=== PATIENT | female | born 1975 | race Two or more races ===

== ENCOUNTER → 2017-12-10 | Outpatient (CLI) | payer MEDICAID ==
[~2017-12-10] MED LIST: AMLO10TA2 PO; FOLI1TAB47 PO; HYDR12.58 PO
[2017-12-10 09:45] LABS: BASOPHILS # (AUTO) 0.03 x10^3/uL (0-0.1); BASOPHILS % (AUTO) 0 % (0-1); EOSINOPHILS # (AUTO) 0.07 x10^3/uL (0-0.4); EOSINOPHILS % (AUTO) 1 % (1-7); LYMPHOCYTES % (AUTO) 27 % (22-44); MD NO; MEAN CORPUSCULAR HGB CONC 34.6 g/dL (32.4-35.8); MEAN CORPUSCULAR VOLUME 92.5 fL (80-100); MEAN PLATELET VOLUME 7.8 fL (7.4-10.4); MONOCYTES # (AUTO) 0.35 x10^3/uL (0.2-0.8); MONOCYTES % (AUTO) 5 % (2-9); NEUTROPHILS # (AUTO) 4.74 x10^3/uL (1.8-6.8); NEUTROPHILS % (AUTO) 67 % (42-75); PLATELET COUNT 271 x10^3/uL (130-400); RED BLOOD COUNT 4.76 x10^6/uL (3.82-5.3); RED CELL DISTRIBUTION WIDTH 12.7 % (9.6-15.2)
[2017-12-10 09:47] LABS: MICROSCOPIC AUTO
[2017-12-10 09:48] LABS: CULTURE INDICATED? NO
[2017-12-10 09:57] LABS: ALANINE AMINOTRANSFERASE 27 U/L (12-78); ALBUMIN 3.7 g/dL (3.4-5.0); ANION GAP 6 mmol/L (5-15); CALCIUM 8.7 mg/dL (8.5-10.1); CHLORIDE 102 mmol/L (98-107); CREATININE 0.84 mg/dL (0.55-1.02)
[2017-12-10 10:01] LABS: ALKALINE PHOSPHATASE 60 U/L (45-117); BILIRUBIN,TOTAL 0.5 mg/dL (0.2-1.0); TOTAL PROTEIN 7.8 g/dL (6.4-8.2)
== END | disposition home or self-care (01) ==
LOC: STAR 08:48
PROVIDERS: ATTEND Obstetrics & Gynecology
DX: Z01.818 Encounter for other preprocedural examination (principal)
CPT/HCPCS: 36415; 80053; 81001; 84703; 85025

== ENCOUNTER 2017-12-23 13:18 | Day surgery (SDC) | payer MEDICAID ==
[~2017-12-23] VITALS: Ht 152.4 cm; Wt 86.6 kg
[2017-12-23] MEDS ORDERED: ACETAMINOPHEN 500 MG TABLET PO ONE (14:00)
[2017-12-23] MEDS ORDERED: SCOPOLAMINE PATCH, 1.5MG PATCH.TD72 TD ONE (14:00)
[2017-12-23] MEDS ORDERED: ONDANSETRON ODT 8 MG PO ONE (14:00)
[2017-12-23] MEDS ORDERED: GABAPENTIN 300 MG CAPSULE PO ONE (14:00)
[2017-12-23] MEDS ORDERED: OxyconTIN ER 20 MG TAB.ER PO ONE (14:00)
[2017-12-23] MEDS ORDERED: LIDOCAINE-MPF 1%, 2ML ONE (14:00)
[2017-12-23] MEDS ORDERED: MIDAZOLAM 1 MG/ML, 2ML ONE (14:05)
[2017-12-23] MEDS ORDERED: FENTANYL PF 250 MCG/5ML ONE (14:05)
[2017-12-23] MEDS ORDERED: ROCURONIUM 10MG/ML,5ML ONE (14:06)
[2017-12-23] MEDS ORDERED: PROPOFOL 10 MG/ML, 20ML ONE (14:06)
[2017-12-23] MEDS ORDERED: GLYCOPYRROLATE 0.4 MG/2 ML, 2ML ONE (14:07)
[2017-12-23] MEDS ORDERED: NEOSTIGMINE 1 MG/ML, 10ML ONE (14:07)
[2017-12-23 14:08] LABS: HCG UR SG 1.025 (1.003-1.030)
[2017-12-23] MEDS ORDERED: LACTATED RINGERS 1,000 ML IV SCH (14:09)
[2017-12-23] MEDS ORDERED: DEXAMETHASONE 4 MG/ML, 1ML ONE ×2 (14:09)
[2017-12-23] MEDS ORDERED: LIDOCAINE-MPF 1%, 2ML INFIL ONE (14:30)
[2017-12-23] MEDS ORDERED: BUPIVACAINE/PF-EPI 0.25% 1:200K ONE (14:55)
[2017-12-23] MEDS ORDERED: BACITRACIN ZINC OINT 500U/GM, 0.9 GM ONE (14:56)
[2017-12-23] MEDS ORDERED: MORPHINE SULFATE 4 MG/ML, 1ML IVPush PRN (15:30)
[2017-12-23] MEDS ORDERED: PROMETHAZINE 12.5 MG SUPP PR PRN (15:30)
[2017-12-23] MEDS ORDERED: PROMETHAZINE 25 MG SUPP PR PRN (15:30)
[2017-12-23] MEDS ORDERED: ONDANSETRON ODT 8 MG PO PRN (15:30)
[2017-12-23] MEDS ORDERED: MEPERIDINE/PF 25MG/0.5ML IVPush PRN (15:30)
[2017-12-23] MEDS ORDERED: FENTANYL PF 100 MCG/2ML IV PRN (15:30)
[2017-12-23] MEDS ORDERED: OXYcodone 5 MG/5 ML ORAL.SOL UDC PO PRN (15:30)
[2017-12-23] MEDS ORDERED: LABETALOL 5MG/ML, 20ML IV PRN (15:30)
[2017-12-23] MEDS ORDERED: HYDROmorphone 1 MG/ML, 1ML IV PRN (15:30)
[2017-12-23] MEDS ORDERED: ONDANSETRON 2MG/ML, 2ML IV PRN (15:30)
[2017-12-23] MEDS ORDERED: hydrALAzine 20 MG/ML, 1ML IV PRN (15:30)
[2017-12-23] MEDS ORDERED: PROMETHAZINE 25 MG/ML, 1ML IV PRN (15:30)
== END 2017-12-23 23:56 | disposition home or self-care (01) ==
LOC: OR 13:18 → 4NOR 18:08 → OR 23:56
PROVIDERS: ATTEND Obstetrics & Gynecology Maternal & Fetal Medicine
DX: Z30.2 Encounter for sterilization (principal); I10 Essential (primary) hypertension
CPT/HCPCS: 58301; 58670; 81025; 88302; J1100; J2250; J2704; J2710; J3010; J3490; J7120; Q0162

== ENCOUNTER 2018-08-01 02:28 | Observation (INO) | payer MEDICAID ==
[~2018-08-01] VITALS: Ht 162.6 cm; Wt 87.1 kg
[~2018-08-01 02:28] MED LIST changes: -AMLO10TA2 PO; +AMLO10TA8 PO; -HYDR12.58 PO; +HYDROCHLOROTH12.5 MG PO
--- NOTE | 2018-08-01 02:47 | NUR ---
PT PRESENTED WITH C/O LEFT ARM PAIN "IT FEELS LIKE SOMETHING IS SQUEEZING IT, IT'S TIGHT". MONITORS APPLIED, SIDERAILS UP X2, CALL LIGHT WITHIN REACH. PA AT BEDSIDE FOR PT EVAL
[2018-08-01] MEDS ORDERED: SODIUM CHLORIDE FLUSH 10ML SYR IVF ONE (03:00)
[2018-08-01] MEDS ORDERED: ASPIRIN 81 MG TABLET CHEW PO ONE (03:00)
[2018-08-01] MEDS ORDERED: ASPIRIN 81 MG TABLET CHEW ONE (03:09)
--- NOTE | 2018-08-01 03:11 | NUR ---
PT RESTING ON GURNEY, MEDICATED PER MAR, FAMILY AT BEDSIDE, CALL LIGHT WITHIN REACH, AWAITING LAB, XRAY RESULTS
[2018-08-01 03:13] LABS: BASOPHILS # (AUTO) 0.09 x10^3/uL (0-0.1); BASOPHILS % (AUTO) 1 % (0-1); EOSINOPHILS # (AUTO) 0.16 x10^3/uL (0-0.4); EOSINOPHILS % (AUTO) 2 % (1-7); LYMPHOCYTES % (AUTO) 24 % (22-44); MD NO; MEAN CORPUSCULAR HEMOGLOBIN 31.8 pg (27.0-34.8); MEAN CORPUSCULAR HGB CONC 34.6 g/dL (32.4-35.8); MEAN CORPUSCULAR VOLUME 91.8 fL (80-100); MEAN PLATELET VOLUME 7.7 fL (7.4-10.4); MONOCYTES # (AUTO) 0.61 x10^3/uL (0.2-0.8); MONOCYTES % (AUTO) 6 % (2-9); NEUTROPHILS # (AUTO) 7.45 x10^3/uL (1.8-6.8); NEUTROPHILS % (AUTO) 68 % (42-75); PLATELET COUNT 266 x10^3/uL (130-400); RED BLOOD COUNT 4.85 x10^6/uL (3.82-5.3); RED CELL DISTRIBUTION WIDTH 13.1 % (9.6-15.2)
[2018-08-01 03:23] LABS: ALBUMIN 4.1 g/dL (3.4-5.0); ANION GAP 9 mmol/L (5-15); CHLORIDE 105 mmol/L (98-107); CREATININE 0.71 mg/dL (0.55-1.02)
[2018-08-01 03:27] LABS: TROPONIN I < 0.015 ng/mL (0.000-0.045)
[2018-08-01] MEDS ORDERED: POTASSIUM CHLORIDE 20 MEQ TAB.ER.PRT ONE (03:54)
[2018-08-01] MEDS ORDERED: POTASSIUM CHLORIDE 20 MEQ TAB.ER.PRT PO ONE (04:00)
[2018-08-01] MEDS ORDERED: SODIUM CHLORIDE 0.9% 1,000 ML IV SCH (05:01)
[2018-08-01 05:26] VITALS: BP 119/78
[2018-08-01] MEDS ORDERED: POLYETHYLENE GLYCOL 17 GM PACKET PO PRN (05:30)
[2018-08-01] MEDS ORDERED: POTASSIUM CHLORIDE 40 MEQ in SODIUM CHLORIDE 0.9% 500 ML IV ONE (05:30)
[2018-08-01] MEDS ORDERED: ONDANSETRON ODT 4 MG PO PRN (05:30)
[2018-08-01] MEDS ORDERED: ONDANSETRON 2MG/ML, 2ML IVPush PRN (05:30)
[2018-08-01] MEDS ORDERED: BISACODYL 10 MG SUPP PR PRN (05:30)
[2018-08-01] MEDS ORDERED: ACETAMINOPHEN 325 MG TABLET PO PRN (05:30)
[2018-08-01] MEDS ORDERED: NITROGLYCERIN 0.4 MG BOTTLE (25 TABS) SL PRN (05:30)
[2018-08-01] MEDS ORDERED: DOCUSATE 100 MG CAPSULE PO PRN (05:30)
[2018-08-01] MEDS ORDERED: hydrALAzine 20 MG/ML, 1ML IVPush PRN (05:30)
[2018-08-01] MEDS ORDERED: HYDROcodone/APAP 5/325 TABLET PO PRN (05:30)
[2018-08-01] MEDS ORDERED: morphine SULFATE 10 MG/ML, 1ML IVPush PRN (05:30)
[2018-08-01] MEDS ORDERED: ASPIRIN 325 MG TABLET EC PO SCH (06:00)
[2018-08-01] MEDS: HEPARIN 5,000 UNITS/ML, 1ML SQ SCH ×2 (06:19→13:03)
[2018-08-01 06:29] LABS: FREE T4 (FREE THYROXINE) 1.23 ng/dL (0.76-1.46); TROPONIN I < 0.015 ng/mL (0.000-0.045)
[2018-08-01 06:34] LABS: HEMOGLOBIN A1C 4.9 % (4.2-6.3)
[2018-08-01 06:59] VITALS: BP 100/65
[2018-08-01] MEDS ORDERED: HYDROCHLOROTHIAZIDE 12.5 MG CAPSULE PO SCH (09:00)
[2018-08-01] MEDS ORDERED: AMLODIPINE 10 MG TAB PO SCH (09:00)
[2018-08-01 09:21] LABS: MICROSCOPIC AUTO
[2018-08-01 09:26] LABS: CULTURE INDICATED? NO
[2018-08-01 13:18] LABS: ANION GAP 6 mmol/L (5-15); CALCIUM 8.8 mg/dL (8.5-10.1); CHLORIDE 105 mmol/L (98-107); CREATININE 0.71 mg/dL (0.55-1.02)
[2018-08-01 13:22] LABS: TROPONIN I < 0.015 ng/mL (0.000-0.045)
[2018-08-01] MEDS ORDERED: ACET-1600 PO (13:56)
== END 2018-08-01 15:16 | disposition home or self-care (01) ==
LOC: ED 03:26 → EDIP 03:56 → INTOOBSV 03:56 → 4EST 05:02
PROVIDERS: ADMIT Internal Medicine; ATTEND Internal Medicine
DX: R07.89 Other chest pain (principal); E87.6 Hypokalemia; I10 Essential (primary) hypertension; Z80.1 Family history of malignant neoplasm of trachea, bronchus and lung; Z82.49 Family history of ischemic heart disease and other diseases of the circulatory system; Z98.82 Breast implant status
CPT/HCPCS: 36415; 71045; 78452; 80048; 81001; 82040; 83036; 83735; 84439; 84443; 84484; 85025; 93005; 93017; 96365; 96366; 96372; 99284; A9502; C9898; G0378; J1644; J3480; J7030; J7040

== ENCOUNTER 2020-09-20 10:02 | Emergency (ER) | payer MEDICAID, OTHER ==
[~2020-09-20] VITALS: Ht 152.4 cm; Wt 86.0 kg
[~2020-09-20 10:02] MED LIST changes: +ACET-1600 PO; +AMLO-211 PO; -AMLO10TA8 PO
[2020-09-20] MEDS ORDERED: HYDROmorphone 1 MG/ML, 1ML INJ IV ONE (11:00)
[2020-09-20] MEDS ORDERED: ONDANSETRON 2MG/ML, 2ML IVPush ONE (11:00)
[2020-09-20] MEDS ORDERED: SODIUM CHLORIDE FLUSH 10ML SYR IVF ONE (11:00)
[2020-09-20] MEDS ORDERED: ONDANSETRON 2MG/ML, 2ML ONE (11:09)
[2020-09-20] MEDS ORDERED: HYDROmorphone 1 MG/ML, 1ML INJ ONE (11:09)
[2020-09-20 11:18] LABS: MICROSCOPIC INDICATED
--- NOTE | 2020-09-20 11:18 | NUR ---
PT AMBULATORY TO BR, PROVIDED URINE SPECIMEN. UA COLLECTED/SENT TO LAB. IV PLACED, LABS DRAWN WITH START. PT MEDICATED FOR 10/10 RUQ/R FLANK PAIN. VSS/UPDATED IN COMPUTER. MED REC COMPLETED. CALL LIGHT WITHIN REACH, WARM BLANKET PROVIDED.
[2020-09-20 11:19] LABS: BASOPHILS % (AUTO) 1 % (0-1); EOSINOPHILS % (AUTO) 1 % (1-7); LYMPHOCYTES % (AUTO) 17 % (22-44); MD NO; MEAN CORPUSCULAR HEMOGLOBIN 32.2 pg (27.0-34.8); MEAN CORPUSCULAR HGB CONC 34.7 g/dL (32.4-35.8); MEAN PLATELET VOLUME 7.8 fL (7.4-10.4); MONOCYTES % (AUTO) 5 % (2-9); NEUTROPHILS % (AUTO) 76 % (42-75); PLATELET COUNT 271 x10^3/uL (130-400); RED BLOOD COUNT 4.48 x10^6/uL (3.82-5.3); RED CELL DISTRIBUTION WIDTH 13.2 % (9.6-15.2)
[2020-09-20 11:27] LABS: ALANINE AMINOTRANSFERASE 23 U/L (12-78); ALBUMIN 3.4 g/dL (3.4-5.0); ANION GAP 4 mmol/L (5-15); CALCIUM 8.6 mg/dL (8.5-10.1); CHLORIDE 106 mmol/L (98-107); CREATININE 0.73 mg/dL (0.55-1.02)
[2020-09-20 11:29] LABS: ALKALINE PHOSPHATASE 70 U/L (45-117); BILIRUBIN,TOTAL 0.4 mg/dL (0.2-1.0); TOTAL PROTEIN 7.6 g/dL (6.4-8.2)
[2020-09-20] MEDS ORDERED: KETOROLAC 30 MG/1 ML ONE (12:15)
[2020-09-20] MEDS ORDERED: KETOROLAC 30 MG/1 ML IVPush ONE (12:30)
[2020-09-20 12:57] VITALS: BP 108/62
[2020-09-21] MEDS ORDERED: OXYC1TAB14 PO (07:29)
== END 2020-09-20 12:59 | disposition home or self-care (01) ==
LOC: ED 10:41
DX: K80.20 Calculus of gallbladder without cholecystitis without obstruction (principal); R10.11 Right upper quadrant pain; R10.9 Unspecified abdominal pain; M54.5 Low back pain; I10 Essential (primary) hypertension; E87.6 Hypokalemia; Z98.51 Tubal ligation status
CPT/HCPCS: 36415; 76700; 80053; 81001; 83690; 85025; 96374; 96375; 99284; J1170; J1885; J2405; 16020; 90471; 99283

== ENCOUNTER 2020-10-21 08:36 | Emergency (ER) | payer OTHER ==
[~2020-10-21] VITALS: Ht 152.4 cm; Wt 83.7 kg
[~2020-10-21 08:36] MED LIST changes: +OXYC1TAB14 PO
--- NOTE | 2020-10-21 08:50 | NUR ---
PT AMBULATED TO ROOM FROM TRIAGE. PT CO 9/10 EPIGASTRIC PAIN. PT STATED THAT SHE HAD HER GALLBLADDER REMOVED LAST MONTH. PT DENIES ANY VOMITING OR DIARRHEA, BLOOD IN URINE OR STOOL, OR FEVER.
[2020-10-21] MEDS: MORPHINE SULFATE 4 MG/ML, 1ML IVPush PRN ×2 (09:19→12:58)
[2020-10-21] MEDS ORDERED: SODIUM CHLORIDE FLUSH 10ML SYR IVF ONE (09:30)
[2020-10-21] MEDS ORDERED: ONDANSETRON 2MG/ML, 2ML IVPush ONE (09:30)
--- NOTE | 2020-10-21 09:30 | NUR ---
US AT BEDSIDE.
[2020-10-21 09:35] LABS: BASOPHILS % (AUTO) 0 % (0-1); EOSINOPHILS % (AUTO) 1 % (1-7); LYMPHOCYTES % (AUTO) 9 % (22-44); MEAN CORPUSCULAR HEMOGLOBIN 32.3 pg (27.0-34.8); MEAN PLATELET VOLUME 7.9 fL (7.4-10.4); MONOCYTES % (AUTO) 8 % (2-9); NEUTROPHILS % (AUTO) 83 % (42-75); PLATELET COUNT 273 x10^3/uL (130-400); RED BLOOD COUNT 4.45 x10^6/uL (3.82-5.3); RED CELL DISTRIBUTION WIDTH 12.8 % (9.6-15.2)
[2020-10-21 09:39] LABS: MD NO
[2020-10-21 09:45] LABS: ALANINE AMINOTRANSFERASE 22 U/L (12-78); ALBUMIN 3.5 g/dL (3.4-5.0); ANION GAP 7 mmol/L (5-15); CALCIUM 9.1 mg/dL (8.5-10.1); CHLORIDE 102 mmol/L (98-107); CREATININE 0.71 mg/dL (0.55-1.02)
[2020-10-21 09:50] LABS: ALKALINE PHOSPHATASE 88 U/L (45-117); BILIRUBIN,TOTAL 0.7 mg/dL (0.2-1.0); TOTAL PROTEIN 7.8 g/dL (6.4-8.2)
--- NOTE | 2020-10-21 10:00 | NUR ---
PT AMBULATED TO RESTROOM.
[2020-10-21 10:29] LABS: MICROSCOPIC INDICATED
--- NOTE | 2020-10-21 11:00 | NUR ---
PT RESTING COMFORTABLY IN [facility]. CALL LIGHT WITHIN REACH.
--- NOTE | 2020-10-21 11:59 | NUR ---
PT RESTING COMFORTABLY IN [facility]. AWAITING CT.
[2020-10-21] MEDS ORDERED: OMNIPAQUE 350 MG/ML, 100ML BOTTLE ONE (12:34)
[2020-10-21] MEDS ORDERED: MORPHINE SULFATE 4 MG/ML, 1ML ONE (12:48)
[2020-10-21 13:01] VITALS: BP 110/67
--- NOTE | 2020-10-21 13:02 | NUR ---
PT GIVEN REPEAT DOSE OF MORPHINE PER AUG. AWAITING CT RESULTS.
[2020-10-21] MEDS ORDERED: POTASSIUM CHLORIDE 20 MEQ TAB.ER.PRT PO ONE (14:00)
--- NOTE | 2020-10-21 14:14 | NUR ---
DISCHARGE INSTRUCTIONS REVIEWED WITH PT. ALL QUESTIONS ANSWERED AT THIS TIME.
== END 2020-10-21 14:16 | disposition home or self-care (01) ==
LOC: ED 08:55
DX: R10.13 Epigastric pain (principal); K85.10 Biliary acute pancreatitis without necrosis or infection; E87.6 Hypokalemia; D72.829 Elevated white blood cell count, unspecified; I10 Essential (primary) hypertension; R11.0 Nausea
CPT/HCPCS: 36415; 74177; 76700; 80053; 81001; 83690; 84703; 85025; 87086; 93005; 96374; 96375; 96376; 99285; J2270; J2405; Q9967